=== PATIENT | female | born 1995 | race Caucasian/White ===

== ENCOUNTER 2017-01-13 23:16 | Emergency (ER) | payer SELFPAY ==
[~2017-01-13] VITALS: Ht 154.9 cm; Wt 61.0 kg
[2017-01-14] MEDS ORDERED: BACITRACIN ZINC OINT UDPKT TOP ONE (01:30)
[2017-01-14] MEDS ORDERED: IBUPROFEN 400MG TABLET PO ONE (01:30)
[2017-01-14 02:37] VITALS: BP 122/55
== END 2017-01-14 02:37 | disposition home or self-care (01) ==
LOC: ER 01-14 01:11
DX: S50.811A Abrasion of right forearm, initial encounter (principal); W26.0XXA Contact with knife, initial encounter; Y93.89 Activity, other specified; Y92.9 Unspecified place or not applicable; Y99.8 Other external cause status
CPT/HCPCS: 99283